=== PATIENT | male | born 1940 | race Caucasian/White ===

== ENCOUNTER 2016-07-02 09:40 | Emergency (ER) | payer MEDICARE, BC ==
[2016-07-02 09:59] VITALS: BP 140/77
--- NOTE | 2016-07-02 10:06 | EDM.PDOC ---
[id number] LEFT THUMB WITH SAW Time Seen by Provider: 07/02/16 10:00 Source: Reports: Patient, Family History Limitations: Reports: No limitations - History of Present Illness INITIAL COMMENTS - FREE TEXT/NARRATIVE: 76-year-old male ran a saw blade over the surface of his left thumb yesterday afternoon. Last night it was painful and today thought he should get it checked out. No other injury, no diabetes or other chronic illness Timing: Reports: still present Location, Skin: Reports: upper extremity, left - Related Data Allergies Allergy/AdvReac Type Severity Reaction Status Date / Time No Known Allergies Allergy Verified 07/02/16 10:00 Home Meds: Ambulatory Orders Medication Instructions Recorded Confirmed Aspirin 325 mg PO DAILY 03/04/13 07/02/16 Psyllium with Sucrose [Metamucil] 1 each PO DAILY 03/04/13 07/02/16 Social & Family History - Alcohol Use Days Per Week of Alcohol Use: 0 - Recreational Drug Use Recreational Drug Use: No ED ROS GENERAL - Review of Systems Review Of Systems: See Below Constitutional: Denies: fever, chills Respiratory: Reports: No Symptoms Cardiovascular: Reports: No symptoms GI/Abdominal: Denies: Nausea, Vomiting ED EXAM, SKIN/RASH Exam: See Below Exam Limited By: No limitations General Appearance: alert, no apparent distress Respiratory/Chest: no respiratory distress Extremities: other (Exam is otherwise limited to the left hand. The patient has a 0.75 x 1.5 cm superficially avulsion across the left pulp, just into the subcutaneous tissue. No active bleeding.) Course - Vital Signs Last Recorded V/S: Last Vital Signs Temp 96.4 F 07/02/16 09:59 Pulse 66 07/02/16 09:59 Resp 14 07/02/16 09:59 BP 140/77 07/02/16 09:59 Pulse Ox 99 07/02/16 09:59 - Re-Assessments/Exams Free Text/Narrative Re-Assessment/Exam: 07/02/16 10:04 The fact that the wound is fairly small, fairly shallow and almost 24 hours old or all reasons to just leave this heal in by secondary intention. Patient will keep the wound covered and clean along with some topical antibiotic and recheck as needed. Departure - Departure Time of Disposition: 10:14 Disposition: Home, Self-Care 01 Condition: good Clinical Impression: Laceration of thumb, left Qualifiers: Encounter type: initial encounter Qualified Code(s): S61.012A - Laceration without foreign body of left thumb without damage to nail, initial encounter Instructions: Laceration Care, Adult, [id number] Referrals: Dwaine Martinez MD [Primary Care Provider] - Forms: ED Department Discharge Care Plan Goals: Keep wound covered and clean while healing. Topical antibiotic would be helpful until the wound is dry. Recheck anytime if not healing satisfactorily or concerns of infection. Use pain medication as directed if needed.
== END 2016-07-02 10:16 | disposition home or self-care (01) ==
LOC: JP.ED 09:40
DX: S61.012A Laceration without foreign body of left thumb without damage to nail, initial encounter (principal); Z79.82 Long term (current) use of aspirin; Z79.899 Other long term (current) drug therapy; W29.3XXA Contact with powered garden and outdoor hand tools and machinery, initial encounter
CPT/HCPCS: 99282; 99283

== ENCOUNTER 2020-08-18 07:17 | Emergency (ER) | payer MEDICARE, BC ==
[2020-08-18 07:33] VITALS: PULSE 67
--- NOTE | 2020-08-18 07:55 | EDM.PDOC ---
ED HPI GENERAL MEDICAL PROBLEM - General Chief Complaint: Neuro Symptoms/Deficits Stated Complaint: MAYBE A STROKE Time Seen by Provider: 08/18/20 07:35 Source of Information: Reports: Patient, EMS, Family History Limitations: Reports: No Limitations - History of Present Illness INITIAL COMMENTS - FREE TEXT/NARRATIVE: 80-year-old male, very healthy, was at the sink this morning brushing his teeth when he felt off, lightheaded and dizzy, then he felt like he could not use his right arm and his left arm was also uncoordinated. He developed tunnel vision so he sat down. His called the ambulance. He had no pain, no palpitations, no diaphoresis or shortness of breath. By the time EMS arrived, he felt back to baseline and is stable. He is on a low-dose aspirin a day and takes psyllium, otherwise very healthy. Onset: Sudden Duration: Minutes: (Symptoms lasted 10 minutes) Location: Reports: Other (Signs visual changes, symptoms were mostly in the upper extremities) Associated Symptoms: Reports: Weakness (Especially in his arms). Denies: Diaphoresis, Headaches, Loss of Appetite, Malaise, Shortness of Breath denies Pain Score (Numeric/FACES): 0 - Related Data Allergies Allergy/AdvReac Type Severity Reaction Status Date / Time No Known Allergies Allergy Verified 07/02/16 10:00 Home Meds: Home Meds Aspirin 81 mg PO DAILY 03/04/13 [History] Psyllium with Sucrose [Metamucil] 1 each PO DAILY 03/04/13 [History] Past Medical History HEENT History: Reports: Cataract, Impaired Vision Musculoskeletal History: Reports: Fracture Other Musculoskeletal History: fx finger Neurological History: Reports: Other (See Below) Other Neuro History: possible TIA greater than 15 years ago Dermatologic History: Reports: Other (See Below) Other Dermatologic History: skin lession removed. - Infectious Disease History Infectious Disease History: Reports: Chicken Pox, Measles, Mumps, Shingles - Past Surgical History HEENT Surgical History: Reports: Tonsillectomy GI Surgical History: Reports: Colonoscopy, Other (See Below) Other GI Surgeries/Procedures: rectal fisure Social & Family History - Tobacco Use Tobacco Use Status *Q: Never Tobacco User Second Hand Smoke Exposure: No - Caffeine Use Caffeine Use: Reports: Coffee, Soda, Tea - Recreational Drug Use Recreational Drug Use: No ED ROS GENERAL - Review of Systems Review Of Systems: See Below Constitutional: Denies: Fever, Chills HEENT: Reports: Vision Change (Tunnel vision, could not see well especially to the right) Respiratory: Reports: No Symptoms Cardiovascular: Reports: No Symptoms GI/Abdominal: Reports: No Symptoms : Reports: No Symptoms Musculoskeletal: Reports: No Symptoms Skin: Reports: No Symptoms Neurological: Reports: Other (As above, no headaches) Psychiatric: Reports: No Symptoms ED EXAM, NEURO - Physical Exam Exam: See Below Exam Limited By: No Limitations General Appearance: Alert, No Apparent Distress Eye Exam: Bilateral Eye: Normal Inspection, Other (No visual field defects) Head Exam: Atraumatic Neck: Normal Inspection, Supple, Non-Tender. No: Carotid Bruit Respiratory/Chest: No Respiratory Distress, Lungs Clear Cardiovascular: Regular Rate, Rhythm. No: Extra Beats Neurological: Alert, Normal Mood/Affect, No Motor/Sensory Deficits, Oriented x 3 Psychiatric: Normal Affect, Normal Mood Skin Exam: Warm, Dry Course - Vital Signs Last Recorded V/S: Last Vital Signs Temp 97.5 F 08/18/20 09:00 Pulse 67 08/18/20 09:00 Resp 14 08/18/20 09:00 BP 126/77 08/18/20 09:00 Pulse Ox 98 08/18/20 09:00 - Orders/Labs/Meds Labs: Laboratory Tests 08/18/20 08/18/20 Range/Units 08:00 08:00 WBC 4.4 L (4.5-11.0) K/uL RBC 4.50 (4.30-5.90) M/uL Hgb 14.7 (12.0-15.0) g/dL Hct 43.8 (40.0-54.0) % MCV 97 (80-98) fL MCH 33 H (27-31) pg MCHC 34 (32-36) % Plt Count 215 (150-400) K/uL Neut % (Auto) 51 (36-66) % Lymph % (Auto) 33 (24-44) % Saunders % (Auto) 11 H (2-6) % Eos % (Auto) 4 (2-4) % Baso % (Auto) 1 (0-1) % Sodium 143 (140-148) mmol/L Potassium 4.5 (3.6-5.2) mmol/L Chloride 106 (100-108) mmol/L Carbon Dioxide 29 (21-32) mmol/L Anion Gap 7.9 (5.0-14.0) mmol/L BUN 30 H (7-18) mg/dL Creatinine 1.1 (0.8-1.3) mg/dL Est Cr Clr Drug Dosing 46.50 mL/min Estimated GFR (MDRD) > 60 (>60) Glucose 89 (74-106) mg/dL Calcium 8.6 (8.5-10.1) mg/dL Total Bilirubin 0.7 (0.2-1.0) mg/dL AST 21 (15-37) U/L ALT 21 (12-78) U/L Alkaline Phosphatase 52 (46-116) U/L Total Protein 6.3 L (6.4-8.2) g/dL Albumin 3.4 (3.4-5.0) g/dL Globulin 2.9 (2.3-3.5) g/dL Albumin/Globulin Ratio 1.2 (1.2-2.2) - Re-Assessments/Exams Free Text/Narrative Re-Assessment/Exam: 08/18/20 07:54 Patient is back to baseline and feels well, for reassurance a head CT without contrast, CBC and CMP will be obtained. He will be kept on the monitor, he is now in a normal sinus rhythm. He likely had a brief vasovagal near syncopal episode. 08/18/20 08:47 Labs all returned reassuring, he remained in normal sinus rhythm and stable without neurologic symptoms. CT of the head showed mild atrophy but no acute findings. I think this was more likely hypotension or vasovagal rather than TIA, patient will return if symptoms recur or he develops other concerns. Departure - Departure Time of Disposition: 09:33 Disposition: Home, Self-Care 01 Clinical Impression: Syncope, near - Discharge Information Instructions: Near-Syncope, [id number] Referrals: Dwaine Martinez MD [Primary Care Provider] - Forms: ED Department Discharge Care Plan Goals: Increase activity as tolerated, continue your daily medications and stay hydrated. Return anytime if symptoms recur or you develop other concerns. Sepsis Event Note (ED) - Evaluation Sepsis Screening Result: No Definite Risk - Focused Exam Vital Signs: Vital Signs Temp Pulse Resp BP Pulse Ox 08/18/20 09:00 97.5 F 67 14 126/77 98 08/18/20 07:25 97.5 F 67 12 134/79 98
--- NOTE | 2020-08-18 08:57 | CT ---
Head wo Cont CLINICAL HISTORY: Mental status change COMPARISON: MRI 2011 TECHNIQUE: Transverse scans were obtained from the base of the skull through the vertex without IV contrast on a multislice, multidetector CT scanner. Auto dosage reduction and iterative reconstruction techniques employed. FINDINGS: There is no mass effect, hemorrhage, or extraaxial collection. There is some periventricular and subcortical lucency. There is a tiny lacunar type infarct in the right basal ganglia The basal cisterns and sulci over the convexities are mildly prominent. The ventricles are normal for age. 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
[2020-08-18 09:33] VITALS: BP 126/77
== END 2020-08-18 09:20 | disposition home or self-care (01) ==
LOC: JP.ED 07:17
DX: R55 Syncope and collapse (principal); R53.1 Weakness; Z79.82 Long term (current) use of aspirin
CPT/HCPCS: 36415; 70450; 70450-26; 80053; 85025; 99284-25